=== PATIENT | male | born 1995 | race Hispanic/Latino ===

== ENCOUNTER 2018-02-24 11:02 | Emergency (ER) | payer OTHER, SELFPAY ==
[2018-02-24] MEDS ORDERED: HYDROcodone/Acetaminophen 5/325 mg Tablet ONE (11:18)
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
--- NOTE | 2018-02-24 19:41 | RAD ---
THORACIC SPINE THREE VIEWS: 02/24/2018 FINDINGS: No fracture, dislocation, or disk space narrowing is seen. The vertebrae appear normal, within the l imitations of a plain film study. IMPRESSION: No acute findings. POS: HOME
--- NOTE | 2018-02-24 19:42 | RAD ---
RIGHT FOOT THREE VIEWS: 02/24/2018 FINDINGS: No fracture or acute traumatic abnormality is seen. The joints appear normal. IMPRESSION: No acute findings. POS: HOME
--- NOTE | 2018-02-24 19:42 | RAD ---
LUMBAR SPINE: 02/24/2018 FINDINGS: No fracture, dislocation, or disk space narrowing is seen. The SI joints appear normal. No acute tr aumatic injuries are seen. IMPRESSION: No acute findings. POS: HOME
== END 2018-02-24 12:16 | disposition home or self-care (01) ==
LOC: BURERS 11:02
DX: S39.012A Strain of muscle, fascia and tendon of lower back, initial encounter (principal); S33.5XXA Sprain of ligaments of lumbar spine, initial encounter; S93.601A Unspecified sprain of right foot, initial encounter; S43.402A Unspecified sprain of left shoulder joint, initial encounter; V43.52XA Car driver injured in collision with other type car in traffic accident, initial encounter
CPT/HCPCS: 70450; 72072; 72100

== ENCOUNTER 2020-06-19 01:12 | Emergency (ER) | payer SELFPAY ==
--- NOTE | 2020-06-19 08:29 | RAD ---
LEFT CLAVICLE: Date: 06/19/2020 The clavicle appears intact. No fracture seen. AC joint is normal in width. IMPRESSION: No acute findings. POS: HOME
--- NOTE | 2020-06-19 08:30 | RAD ---
LEFT SHOULDER 3 VIEWS: Date: 06/19/2020 No fracture, dislocation, or AC joint widening seen. The visible adjacent ribs and scapula appear int act. IMPRESSION: No acute findings. POS: HOME
== END 2020-06-19 01:41 ==
LOC: BURERS 01:12
DX: S43.402A Unspecified sprain of left shoulder joint, initial encounter (principal); F41.9 Anxiety disorder, unspecified; Z87.891 Personal history of nicotine dependence; W51.XXXA Accidental striking against or bumped into by another person, initial encounter

== ENCOUNTER 2023-02-15 18:14 | Emergency (ER) | payer OTHER, SELFPAY ==
[2023-02-15] MEDS ORDERED: predniSONE 20 MG TAB ONE (19:05)
[2023-02-15] MEDS ORDERED: Ketorolac Tromethamine 30 MG/ML VIAL ONE (19:05)
[2023-02-15] MEDS ORDERED: Morphine 2 MG/ML VIAL ONE (19:05)
[2023-02-15] MEDS ORDERED: Morphine 4 MG/ML VIAL ONE (19:06)
== END 2023-02-15 20:36 | disposition home or self-care (01) ==
LOC: BURERS 18:14
DX: M54.50 Low back pain, unspecified (principal); M54.6 Pain in thoracic spine; W01.0XXA Fall on same level from slipping, tripping and stumbling without subsequent striking against object, initial encounter; Y92.89 Other specified places as the place of occurrence of the external cause
CPT/HCPCS: 71045; 72110; 96372; J1885; J2270; J2272; J7512

== ENCOUNTER 2024-11-17 15:15 | Emergency (ER) | payer OTHER, SELFPAY ==
[2024-11-17] MEDS ORDERED: Morphine 4 MG/ML VIAL ONE (15:47)
[2024-11-17 15:53] LABS: #Basophils 0.1 thou/uL (0.0-0.2); #Eosinophils 0.4 thou/uL (0.0-0.7); #Lymphocytes 4.3 thou/uL (1.20-3.40); #Monocytes 0.5 thou/uL (0.11-0.59); #Neutrophils 7.8 thou/uL (1.40-6.50); %Basophils 0.7 % (0.0-1.0); %Eosinophils 3.3 % (0.0-10.0); %Lymphocytes 32.8 % (21.0-51.0); %Monocytes 3.8 % (0.0-10.0); %Neutrophils 59.5 % (42.0-75.0); Hematocrit 42.8 % (42.0-52.0); Hemoglobin 14.6 g/dL (14.0-18.0); Mean Corpuscular HGB CONC 34.1 g/dL (32.0-36.0); Mean Platelet Volume 6.8 fL (7.4-10.4); Platelet Count 316 10x3/uL (130-400); RBC Distribution Width 11.4 % (11.5-14.5); Red Blood Cell (RBC) Count 4.86 mill/uL (4.70-6.10); White Blood Cell (WBC) Count 13.1 10x3/uL (4.8-10.8)
[2024-11-17 16:10] LABS: ALT (SGPT) 26 U/L (8-55); AST (SGOT) 17 U/L (5-34); Albumin 3.7 g/dL (3.5-5.0); Alkaline Phosphatase 67 U/L (40-110); Anion Gap 14 mmol/L (10-20); BUN (Urea Nitrogen) 14 mg/dL (8.9-20.6); Bilirubin, Total 0.3 mg/dL (0.2-1.2); Calc. Creatinine Clearance 0 mL/min (70-130); Calcium 9.2 mg/dL (7.8-10.44); Carbon Dioxide 26 mmol/L (22-29); Chloride 103 mmol/L (98-107); Estimated GFR 122; Globulin 3.4 g/dL (2.4-3.5); Glucose 125 mg/dL (70-105); Lipase 26 U/L (8-78); Protein, Total 7.1 g/dL (6.0-8.3); Sodium 139 mmol/L (136-145)
== END 2024-11-17 16:41 | disposition home or self-care (01) ==
LOC: BURERS 15:15
DX: R10.31 Right lower quadrant pain (principal); R10.32 Left lower quadrant pain; F17.210 Nicotine dependence, cigarettes, uncomplicated
CPT/HCPCS: 74177; 80053; 83605; 83690; 85025; 96374; J2272